=== PATIENT | female | born 1990 | race Caucasian/White ===

== ENCOUNTER 2022-05-18 14:48 | Emergency (ER) | payer OTHER ==
[~2022-05-18] VITALS: Ht 154.9 cm; Wt 68.0 kg
[~2022-05-18 14:48] MED LIST: MACROBID 100 M100 MG PO; OSEL75CA PO; PRENATAL1 TAB; ZYRTEC10 MG PO
[2022-05-18] MEDS ORDERED: LEVSIN/SL0.125 MG SL (21:02)
[2022-05-18] MEDS ORDERED: PEPCID AC20 MG PO (21:02)
== END 2022-05-18 21:46 | disposition home or self-care (01) ==
LOC: ER 14:48
DX: K80.20 Calculus of gallbladder without cholecystitis without obstruction (principal); Z88.8 Allergy status to other drugs, medicaments and biological substances

== ENCOUNTER 2022-05-19 16:47 | Inpatient (IN) | payer OTHER ==
[~2022-05-19] VITALS: Ht 152.4 cm; Wt 69.9 kg
[~2022-05-19 16:47] MED LIST changes: +LEVSIN/SL0.125 MG SL; +PEPCID AC20 MG PO
--- NOTE | 2022-05-19 16:58 | NUR ---
PTE SE RECIBE POR DOLOR DE ESTOMAGO REFIERE PARAMEDICO Y PTE.
--- NOTE | 2022-05-19 17:24 | NUR ---
SE RECIBE PTE FEMENINA AN AMBULANCIA ALERTA Y ORIENTADA X3. DR. CLEMENTS EDUCA A PTE SOBRE TRATAMIENTO, PTE VERBALIZA COMPRENDER. SE ADMINISTRA TX ALEXIA ORDEN MEDICA, BAJO MEDIDAS ASEPTICAS. PTE CANALIZADA EN [place]. CON ANGIO #20 NICA DE EDEMA Y ERITEMA. MEDICAMENTOS SON ADMINISTRADOS POR MS. SUE. SE YINKA PTE EN RODRÍGUEZ 6 CON BARANDAS ELEVADAS.
== END 2022-05-23 22:59 | disposition home or self-care (01) | DRG 419 ==
LOC: ER 16:47 → SEC-K 22:29 → SURG 22:29
PROVIDERS: Surgery; ADMIT Internal Medicine; ATTEND Internal Medicine
PROC: CF141ZZ Planar Nuclear Medicine Imaging of Gallbladder using Technetium 99m (Tc-99m) (ICD-10-PCS; 2022-05-20)
PROC: 0FT44ZZ Resection of Gallbladder, Percutaneous Endoscopic Approach (ICD-10-PCS; principal; 2022-05-22 09:00)
DX: K80.10 Calculus of gallbladder with chronic cholecystitis without obstruction (principal); Z20.822 Contact with and (suspected) exposure to COVID-19

== ENCOUNTER 2023-08-29 09:27 | Emergency (ER) | payer OTHER ==
[~2023-08-29] VITALS: Ht 154.9 cm; Wt 81.6 kg
[2023-08-29 11:11] LABS: HEMATOCRIT 38.9 % (36.0-45.00); HEMOGLOBIN 12.3 g/dL (12.0-15.00); MEAN CELL VOLUME 76.3 fL (80.00-100.00); MEAN CORPUSCULAR HEMOGLOBIN 24.1 pg (27.00-32.0); MEAN CORPUSCULAR HGB CONC 31.6 g/dl (32.0-36.0); PLATELET COUNT 299 K/uL (150-450); RED BLOOD COUNT 5.09 M/uL (4.00-6.00); RED CELL DISTRIBUTION WIDTH 15.4 % (11.5-14.5)
[2023-08-29 11:31] LABS: CALCIUM 9.4 mg/dL (8.5-10.1); CREATININE SERUM 0.67 mg/dL (0.55-1.02); POTASSIUM 3.74 mEq/L (3.5-5.1)
[2023-08-29 12:00] LABS: PH,URINE 7.5 (5.0-8.0); URINE APPEARANCE Clear; URINE BILIRRUBIN Negative (NEGATIVE); URINE BLOOD Small; URINE COLOR Yellow; URINE GLUCOSE Negative (NEGATIVE); URINE LEUKOCYTE Moderate; URINE NITRATE Negative; URINE PROTEIN 30 (NEGATIVE); URINE UROBILINOGEN 0.2 E.U./dl
[2023-08-29 12:03] LABS: URINE EPITHELIAL CELLS 2.9 uL (0.0-38.8); URINE RBC 58.2 uL (0.0-20.8); URINE WBC 760.6 uL (0.0-23.2)
[2023-08-29] MEDS ORDERED: MACROBID 100 M100 MG PO (12:37)
[2023-08-29] MEDS ORDERED: TAMS0.4C PO (12:42)
== END 2023-08-29 12:42 | disposition home or self-care (01) ==
LOC: ER 09:27
PROVIDERS: General Practice
DX: R30.0 Dysuria (principal); N39.0 Urinary tract infection, site not specified; B95.7 Other staphylococcus as the cause of diseases classified elsewhere; Z88.2 Allergy status to sulfonamides; Z88.8 Allergy status to other drugs, medicaments and biological substances; N20.0 Calculus of kidney

== ENCOUNTER 2024-07-30 06:53 | Emergency (ER) | payer OTHER ==
[~2024-07-30] VITALS: Ht 157.5 cm; Wt 81.6 kg
[~2024-07-30 06:53] MED LIST changes: +TAMS0.4C PO
[2024-07-30] MEDS ORDERED: BIKTARVY 30-121 EACH PO (07:10)
[2024-07-30 08:39] LABS: HEMATOCRIT 36.6 % (36.0-45.00); HEMOGLOBIN 11.8 g/dL (12.0-15.00); MEAN CORPUSCULAR HEMOGLOBIN 23.5 pg (27.00-32.0); MEAN CORPUSCULAR HGB CONC 32.2 g/dl (32.0-36.0); PLATELET COUNT 293 K/uL (150-450); RED BLOOD COUNT 5.02 M/uL (4.00-6.00); RED CELL DISTRIBUTION WIDTH 17.9 % (11.5-14.5)
== END 2024-07-30 09:54 | disposition home or self-care (01) ==
LOC: ER 06:55
PROVIDERS: General Practice
DX: J10.1 Influenza due to other identified influenza virus with other respiratory manifestations (principal); Z20.822 Contact with and (suspected) exposure to COVID-19; Z88.8 Allergy status to other drugs, medicaments and biological substances; Z88.2 Allergy status to sulfonamides